=== PATIENT | female | born 1930 | race Caucasian/White ===

== ENCOUNTER 2019-06-29 14:24 | Inpatient (IN) | payer MEDICARE, OTHER ==
[~2019-06-29] VITALS: Ht 160 cm; Wt 53.5 kg
[~2019-06-29 14:24] MED LIST: ASACOL400 MG PO; AZITHROMYCIN250 MG PO; BUMETANIDE1 MG PO; CATAPRES0.2 MG PO; CENTRUM SILVER1 EAC3 PO; ESTRADIOL1 MG PO; GLIPIZIDE XL2.5 MG PO; IBUPROFEN400 MG PO; JANUVIA100 MG PO; KEFLEX500 MG PO; LEVOTHYROXINE100 MC1 PO; METFORMIN HCL500 MG PO; NEXIUM40 MG PO; NORTRIPTYLINE H10 MG PO; PLAVIX75 MG PO
[2019-06-29] MEDS ORDERED: SODIUM CHLORIDE 0.9% 500ML 500 ML IV ONE (17:15)
--- NOTE | 2019-06-29 19:02 | NUR ---
LABIA NOTED TO BE RED AND EXCORIATED, KAELA CARE PROVIDED, NEW ADULT BRIEF PLACED.
[2019-06-29 19:20] LABS: BASOPHILS % 0.3 % (0.0-1.0); EOSINOPHILS # (AUTO) 0.1 (0.0-0.4); EOSINOPHILS % 1.2 % (0.0-6.0); HEMATOCRIT 34.9 % (34.2-44.1); HEMOGLOBIN 11.4 g/dL (12.0-16.0); LYMPHOCYTES # (AUTO) 1.5 (1.0-3.2); MEAN CORPUSCULAR HEMOGLOBIN 28.3 pg (28-32); MEAN CORPUSCULAR HGB CONC 32.7 g/dL (31-35); MEAN CORPUSCULAR VOLUME 86.6 fL (81-99); MONOCYTES # (AUTO) 1.1 (0.2-0.8); MONOCYTES % 10.2 % (4.4-11.3); NEUTROPHILS # (AUTO) 7.8 (2.1-6.9); NEUTROPHILS % 73.6 % (38.7-80.0); PLATELET COUNT 327 x10e3/uL (140-360); RED BLOOD COUNT 4.03 x10e6/uL (3.6-5.1); RED CELL DISTRIBUTION WIDTH 17.3 % (11.7-14.4)
[2019-06-29 19:21] LABS: BILIRUBIN,URINE NEGATIVE (NEGATIVE); CLARITY,URINE SL CLOUDY (CLEAR); COLOR,URINE YELLOW (YELLOW); KETONES,URINE NEGATIVE (NEGATIVE); LEUKOCYTE ESTERASE ,URINE LARGE (NEGATIVE); NITRITE,URINE POSITIVE (NEGATIVE); PROTEIN,URINE DIPSTICK 2+ (NEGATIVE); URINE UROBILINOGEN 0.2 mg/dL (0.2 - 1)
[2019-06-29 19:36] LABS: BACTERIA,URINE MODERATE /HPF; EPITHELIAL CELLS,URINE RARE /LPF; WBC,URINE (MAN) >50 /HPF (0-5)
[2019-06-29 19:42] LABS: ALBUMIN 3.7 g/dL (3.5-5.0); ALBUMIN/GLOBULIN RATIO 0.9 (0.8-2.0); ANION GAP 16.8 mmol/L (8-16); CALCIUM 10.1 mg/dL (8.4-10.2); CREATININE, SERUM 2.49 mg/dL (0.57-1.11); MAGNESIUM 2.5 MG/DL (1.3-2.1); POTASSIUM 4.8 mmol/L (3.5-5.1)
[2019-06-29 19:48] LABS: CREATINE KINASE MB 0.8 ng/mL (0-5.0)
--- NOTE | 2019-06-29 19:50 | Diagnostic Imaging Report ---
EXAMINATION: Head CT without contrast. HISTORY:Altered mental status. COMPARISON:Report of MRI brain from 12/21/2007, prior images are not available for comparison at the time of interpretation. TECHNIQUE: Multidetector axial images were obtained from the foramen magnum to the vertex without contrast. The images were reconstructed using brain and bone algorithms. Thin section brain images were reformatted into coronal and sagittal planes. Dose modulation, iterative reconstruction, and/or weight based adjustment of the mA/kV was utilized to reduce the radiation dose to as low as reasonably achievable. Intravenous contrast: None IMAGE QUALITY: Acceptable. FINDINGS: Skull/scalp: No lytic or blastic. lesions. No surgical changes. Parenchyma: Nonspecific bilateral frontoparietal confluent periventricular, patchy subcortical and deep white matter hypodensity are likely related to small vessel ischemic changes. Focal hypodensity in anterior aspect of right putamen and punctate hypodensity in the posterior aspect of left putamen represents age indeterminate lacunar infarct. No acute hemorrhage, mass or acute major vascular territorial infarct. Arteries: No density suggestive of thrombosis. Atherosclerotic calcification in bilateral carotid siphon. Dural sinuses: No abnormal density suggestive of thrombosis. Ventricles: Mild compensated dilatation due to volume loss. No hydrocephalus. Extra-axial spaces: No abnormal density. Brain volume: Generalized age-related cerebral volume loss. Craniocervical junction: No mass, Chiari malformation, or basilar invagination. Sella: No mass. Paranasal/mastoid sinuses: Imaged portions unremarkable. IMPRESSION: 1. No acute intracranial abnormality, particularly no acute hemorrhage, mass or acute major vascular territorial infarct. 2. 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 3. Moderate to severe supratentorial white matter microvascular ischemic changes. 4. Generalized age-related cerebral volume loss. Signed by: Dr. Emily Genao M.D. on 06/29/2019 7:47 PM
[2019-06-29] MEDS ORDERED: CEFTRIAXONE SOD 1 GM/NS 50 ML 50 ML IV SCH (20:15)
[2019-06-30] VITALS (7 sets, daily range): BP systolic 119–177; BP diastolic 55–86
--- NOTE | 2019-06-30 00:25 | NUR ---
DR. SHORT AT BEDSIDE EXPLAINING RISKS, BENEFITS, AND ALTERNATIVE TREATMENTS FOR CENTRAL LINE PLACEMENT DUE TO POOR VENOUS ACCESS AND NEED FOR IV ABX AT THIS TIME; OBTAINING WITNESS FOR INFORMED CONSENT AT THIS TIME.
--- NOTE | 2019-06-30 00:48 | NUR ---
CENTRAL LINE PLACED BY DR. SHORT AT BEDSIDE USING STERILE TECHNIQUE, SITE IS C/D/I WITH DRESSING INTACT, PT TOLERATING WELL AT THIS TIME, LINE OKAY TO USE PER DR. SHORT.
--- NOTE | 2019-06-30 00:50 | NUR ---
CENTRAL LINE TO RT FEMORAL.
--- NOTE | 2019-06-30 01:45 | NUR ---
received patient, aaox2 to self and place. at bedside provided hx and med list. patient denies pain. r triple lumen femoral central line ns @ 125. purewick placed and diaper placed. diaper dermatitis to jorden area and buttock, small stage 2 to sacrum, skin tear to right lateral buttock, stage 1 to bilat. heels. allevyn pink dressing applied to sacrum and bilat heels, heels protectors applied, alternating pressure pump applied, q2 turns initiated. tele #17 SR. at this time no needs voiced, bed locked and in lowest position, call light within easy reach. bed alarm on. will continue to monitor patient.
[2019-06-30] MEDS ORDERED: PANTOPRAZOLE SO40 MG PO (02:02)
[2019-06-30] MEDS ORDERED: RISPERIDONE1 MG PO (02:02)
[2019-06-30] MEDS ORDERED: METFORMIN HCL500 MG PO (02:02)
[2019-06-30] MEDS ORDERED: MEGESTROL ACETA40 MG PO (02:02)
[2019-06-30] MEDS ORDERED: TEMAZEPAM15 MG PO (02:02)
[2019-06-30] MEDS ORDERED: BUSPIRONE HCL5 MG PO (02:02)
[2019-06-30] MEDS: SODIUM CHLORIDE 0.9% 1000ML 1,000 ML IV SCH ×3 (03:13→16:37)
[2019-06-30] MEDS ORDERED: CLONIDINE HCL 0.1 MG TAB PO PRN (04:00)
[2019-06-30] MEDS ORDERED: LABETALOL HCL 5 MG/ML 20ML VIAL IV PRN (04:00)
--- NOTE | 2019-06-30 04:05 | NUR ---
spoke with dr. brooks regarding elevated bp, new telephone orders entered and implemented.
[2019-06-30 04:31] LABS: CREATINE KINASE MB 0.8 ng/mL (0-5.0)
--- NOTE | 2019-06-30 07:03 | NUR ---
RECEIVED BEDSIDE SHIFT REPORT FROM PROJECT GEOPHYSICIST RN, PT RESTING IN BED, IN STABLE CONDITION. CALL LIGHT WITHIN REACH. WILL CONTINUE TO MONITOR.
--- NOTE | 2019-06-30 07:05 | NUR ---
BEDSIDE SHIFT REPORT RECEIVED PT IN STABLE CONDITION, IVF INFUSING TO R FEMORAL TRIPLE LUMEN, NO DISTRESS NOTED, NO OTHER CO VOICED CALL LIGHT IN REACH WILL CONTINUE TO MONITOR
[2019-06-30 10:50] LABS: CREATINE KINASE MB 0.9 ng/mL (0-5.0)
[2019-06-30] MEDS: CEFTRIAXONE SOD 1 GM/NS 50 ML 50 ML IV SCH (12:55)
--- NOTE | 2019-06-30 14:05 | Diagnostic Imaging Report ---
A single frontal view of the chest. HISTORY: CHF COMPARISON: None available. DISCUSSION: Portable technique, limits sensitivity of the exam. Left anterior oblique rotation. Overlying monitoring leads. Tubes/Lines: None Lungs and pleura: Low lung volumes result in bibasilar vascular crowding, accentuation of the pulmonary interstitial markings, central pulmonary vasculature, and the cardiac silhouette. Allowing for these limitations, the findings are as follows: Mild left basilar volume loss. Improved aeration of the right lung base. Heart and mediastinum: Stable mild rightward translation of the upper mediastinum, which may be accentuated by the left convex curvature of the thoracic spine. Stable appearing ectasia versus tortuosity of the thoracic aorta with prominent calcifications. Bones and soft tissues: Appear unremarkable, given this limited exam. IMPRESSION: Mild left basilar volume loss, compatible with atelectasis. No consolidative pneumonia or pulmonary alveolar edema. Signed by: Dr. Kevin Lacy D.O., M.M.M. on 06/30/2019 2:02 PM
--- NOTE | 2019-06-30 14:42 | History and Physical ---
CHIEF COMPLAINT: Altered mentation. HISTORY OF PRESENT ILLNESS: This is an 89-year-old white woman, who presents to [facility] with a 2-week history of worsening confusion. According to adult daughter, the patient has been less interactive over the last two weeks. In fact, over the last week, she has eaten only minimally. The patient is usually in an anxious agitated state, but over the last week, she has become less interactive and more quiet, which is unusual for her according to adult daughter. In the emergency room, the patient was found to have white blood cell count of 10,500 with 73% segments. Also, in the emergency room, the patient's BUN and creatinine was 40 and 2.49 respectively. The patient underwent CT of the head in the emergency room that did not reveal any acute intracranial abnormality, but did reveal moderate to severe white matter microvascular ischemic changes. The patient had urinalysis performed in the emergency room revealed cloudy yellow urine with 1+ protein, positive nitrites, large leukocyte esterase, 11 to 20 red blood cells per high-power field and greater than 50 white blood cells per high-power field. Urinalysis also revealed moderate bacteria. The patient was admitted for further evaluation and treatment. REVIEW OF SYSTEMS: GENERAL: The patient has lost at least 10 to 15 pounds over the last year. Her dementia is only worsening according to adult daughter. She had no fever, chills lately. HEENT: No headaches. No vision changes. CARDIOVASCULAR: No visible shortness of breath or chest pain according to adult daughter. GI: No nausea, vomiting, diarrhea, or constipation. : She suffers from recurrent urinary tract infections. NEUROMUSCULAR: She is completely bed bound. Does not ambulate according to adult daughter. ALLERGIES: ORAL PAIN MEDICATIONS. FAMILY HISTORY: Noncontributory. SOCIAL HISTORY: This woman is , lives with her . No history of tobacco or alcohol use. She has adult daughter who is very much involved in her health care needs. PAST MEDICAL HISTORY: 1. 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 2. Hypertensive heart disease. 3. Stage 3 chronic kidney disease. 4. Recurrent urinary tract infection. 5. Type 2 diabetes mellitus. 6. GERD. 7. Dementia with behavior disturbances. 8. Hypothyroidism. SURGICAL HISTORY: 1. Hysterectomy. 2. Multiple lumbar spine surgeries. 3. Cervical spine surgery. 4. Right total knee replacement. CURRENT MEDICATIONS: As follows: 1. Bumex 1 mg daily. 2. BuSpar 10 mg b.i.d. 3. Clonidine 0.2 mg once daily for elevated blood pressure. 4. Clopidogrel 75 mg daily. 5. Nexium 40 mg daily. 6. Estradiol 1 mg daily. 7. Glipizide 2.5 mg daily. 8. Ibuprofen 400 mg daily. 9. Levothyroxine 100 mcg daily. 10. Megace 40 mg daily. 11. Asacol 400 mg t.i.d. 12. Metformin 500 mg daily. 13. Nortriptyline 10 mg daily. 14. Pantoprazole 40 mg daily. 15. Risperdal 1 mg b.i.d. 16. Temazepam 15 mg q.h.s. for insomnia. 17. Multivitamins daily. PHYSICAL EXAMINATION: GENERAL: She is awake, looks alert. She is not oriented to self, time, place. She has obvious dementia. Her adult daughter is at bedside who provides history. VITAL SIGNS: Height 5 feet 3 inches, weight 118 pounds, BMI 20, blood pressure 178/80, pulse is 100, respiratory rate 18, oxygen saturation 96%, temp 98.7. INTEGUMENT: Skin is warm and dry. No pallor, jaundice, diaphoresis. HEENT: Anterior sclerae. Moist mucous membranes. NECK: Supple. CARDIOVASCULAR: Tachycardic rate, regular. The patient had S3 gallop. LUNGS: No rales, rhonchi, or wheezes. ABDOMEN: Benign. EXTREMITIES: No edema or deformities. NEUROLOGIC: Intact. IMPRESSION: 1. Sepsis secondary to urinary tract infection. 2. Acute on chronic renal failure. 3. 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 4. Acute delirium secondary to metabolic encephalopathy from sepsis. 5. Physical debility. 6. Type 2 diabetes mellitus. 7. Chronic diastolic congestive heart failure. PLAN: 1. We will address code status with the patient's who is the medical power of attorney general. 2. We will likely discontinue telemetry. 3. Intravenous antibiotics. 4. Follow renal function. 5. Intravenous fluids. 6. Order chest x-ray. 7. We will start metformin and ibuprofen as well as Bumex since the patient has acute renal failure. 8. We will stop glipizide since oral sulfonylureas can cause severe hypoglycemia in an elderly. 9. Check TSH level since she has history of hypothyroidism. I spent 50 minutes in the care of the patient. MD DENNIS Anthony/TENNILLE /[id number] MTDJuni
--- NOTE | 2019-06-30 15:29 | NUR ---
Nutrition Intervention Note RD Recommendation(s) for Physician: Continue Diet as ordered Plan of Care: RD following, monitoring for tolerance and adequacy Nutrition reason for involvement: Nutrition Risk Trigger - MST RD Assessment Initial encounter with patient and daughter. Diet Hx: pt has no known food allergies. Pt was confused and daughter provided nutrition Hx. Family does not want nutrition support at this time, but may consider a PEG for senior care nutrition needs. Daughter states that pt has been living off of Boost for several months, but she has been refusing to eat over the past week. Altered mental status due to UTI and Dementia. Involuntary wt loss, loss of functional mobility, loss of lean body mass, prominent acromion process, ribs scapula, clavicle, temporal wasting. Pt has missing and broken teeth with some biting/chewing difficulty, but can manage with regular consistency food. Will provide Chocolate Ensure Enlive TID with meals. Principal Problems/Diagnoses: UTI, renal failure PMH:Dementia, GERD, Hypothyroid, CKD stage 3, GI: normal BM Skin: intact Labs: (06/30/2019) glucose 189 Meds: (06/30/19)1. Bumex 1 mg daily. Glipizide, Levothyroxine, Megace, Metformin, Multivitamins daily. Ht:63 in. Wt:118lbs BMI:20.9kg/M2 IBW:118lbs Malnutrition Evaluation (06/30/2019) The patient meets criteria for unspecified SEVERE protein-calorie malnutrition. Energy intake: <50% of estimated energy requirements for >1 month Weight loss: >7.5% in 3 months (Chronic) Fat loss: Severe Muscle loss: Severe Supporting Evidence: Fluid accumulation: none Functional Status: measurably reduced Nutrition Prescription (Diet Order): Cardiac diet Estimated Nutritional Needs: 1340 - 1609calories/day ( 25-30kcal/kg/BW) 53-80g protein/day ( 1-1.5g pro/kg/BW) Diet Adequacy: Not meeting calorie needs, Not meeting protein needs) Diet Education Needs Assessment: Diet education not indicated. Nutrition Care Level: Moderate Nutrition Diagnosis: Malnutrition related to dementia as evidenced by loss of lean body mass Goal: Patient will meet 75-100% of estimated needs by follow up Progress: Not Progressing Interventions: modified diet, Commercial beverage Monitoring/Evaluation: Total energy intake, Total protein intake, Liquid supplement, Weight change Signed: Cooper Fletcher RD, DONNA, CNSC
[2019-06-30] MEDS ORDERED: DEXTROSE 50% SYRINGE 50 ML IV PRN (16:15)
[2019-06-30] MEDS: INSULIN REGULAR, HUMAN 100 UNIT/1 ML 3ML VIAL SQ SCH ×2 (17:28→21:40)
[2019-06-30] MEDS: RISPERIDONE 1 MG TAB PO SCH (17:43)
--- NOTE | 2019-06-30 19:11 | NUR ---
WALKING ROUNDS PERFORMED, RECEIVED PT LAYING SEMI FOWLERS IN BED, RESTING, 16 RR/MIN. RR EVEN AND NON-LABORED, ON ROOM AIR. NO S/SX OF DISTRESS NOTED. LEFT PT LAYING SEMI FOWLERS IN BED, BED IN LOW LOCKED POSITION, SIDE RAILS UPX2, CALL LIGHT AND PHONE WITHIN REACH.
[2019-06-30 20:19] LABS: CREATINE KINASE MB 0.9 ng/mL (0-5.0)
[2019-06-30] MEDS: TEMAZEPAM 15 MG CAP PO SCH (21:40)
[2019-07-01] VITALS (8 sets, daily range): BP systolic 147–196; BP diastolic 69–93
[2019-07-01] MEDS: CEFTRIAXONE SOD 1 GM/NS 50 ML 50 ML IV SCH ×3 (00:40→23:41)
[2019-07-01] MEDS: PANTOPRAZOLE SOD 40 MG TABEC PO SCH ×2 (05:06→22:47)
[2019-07-01 05:50] LABS: BASOPHILS % 0.5 % (0.0-1.0); EOSINOPHILS # (AUTO) 0.2 (0.0-0.4); EOSINOPHILS % 2.5 % (0.0-6.0); HEMATOCRIT 27.6 % (34.2-44.1); HEMOGLOBIN 8.6 g/dL (12.0-16.0); LYMPHOCYTES # (AUTO) 1.1 (1.0-3.2); LYMPHOCYTES % 14.3 % (18.0-39.1); MEAN CORPUSCULAR HEMOGLOBIN 27.8 pg (28-32); MEAN CORPUSCULAR HGB CONC 31.2 g/dL (31-35); MEAN CORPUSCULAR VOLUME 89.3 fL (81-99); MONOCYTES # (AUTO) 0.6 (0.2-0.8); MONOCYTES % 7.9 % (4.4-11.3); NEUTROPHILS # (AUTO) 5.8 (2.1-6.9); NEUTROPHILS % 74.3 % (38.7-80.0); PLATELET COUNT 261 x10e3/uL (140-360); RED BLOOD COUNT 3.09 x10e6/uL (3.6-5.1); RED CELL DISTRIBUTION WIDTH 17.7 % (11.7-14.4)
[2019-07-01] MEDS: SODIUM CHLORIDE 0.9% 1000ML 1,000 ML IV SCH ×2 (05:50→21:30)
[2019-07-01 06:04] LABS: CALCIUM 8.7 mg/dL (8.4-10.2); CREATININE, SERUM 1.83 mg/dL (0.57-1.11)
--- NOTE | 2019-07-01 06:19 | NUR ---
PUREWICK AND WALL SUCTION CANISTER CHANGED.
--- NOTE | 2019-07-01 06:59 | NUR ---
received shift report from slot shift manager nurse, pt resting in bed, respirations even and nonlabored. no s/s distress noted. call light within reach, will continue to monitor.
[2019-07-01] MEDS: INSULIN REGULAR, HUMAN 100 UNIT/1 ML 3ML VIAL SQ SCH ×4 (07:30→20:52)
[2019-07-01] MEDS: RISPERIDONE 1 MG TAB PO SCH ×2 (08:53→17:38)
[2019-07-01] MEDS: LEVOTHYROXINE SODIUM 100 MCG/VIAL IM SCH (08:53)
[2019-07-01] MEDS: MEGESTROL ACETATE 40 MG TAB PO SCH (08:53)
--- NOTE | 2019-07-01 11:07 | NUR ---
pt was turned to right side in bed, dressings changed to sacrum and bilateral feet. will continue to monitor.
--- NOTE | 2019-07-01 12:19 | NUR ---
per daughter, pt's gave verbal consent for pt to receive blood transfusion, if needed.
[2019-07-01] MEDS: PANTOPRAZOLE SODIUM 40 MG SUSPDR.PKT PO SCH (17:38)
--- NOTE | 2019-07-01 19:25 | NUR ---
report given to assembler 1st shift rn, pt left in stable condition, call light in reach will continue to monitor
[2019-07-01] MEDS: TEMAZEPAM 15 MG CAP PO SCH (20:52)
--- NOTE | 2019-07-01 21:00 | NUR ---
DIAPER CHANGED, CLEANSED KAELA-AREA AND APPLIED NEW PUREWICK CATHETER. CENTRAL LINE CATHETER DRESSING SATURATED WITH URINE. REMOVED DRESSING AND PERFORMED STERILE DRESSING CHANGE TO (R) FEMORAL CENTRAL LINE.
[2019-07-02] VITALS (8 sets, daily range): BP systolic 134–179; BP diastolic 66–90
[2019-07-02 05:16] LABS: BASOPHILS % 0.4 % (0.0-1.0); EOSINOPHILS # (AUTO) 0.3 (0.0-0.4); EOSINOPHILS % 3.3 % (0.0-6.0); HEMATOCRIT 25.9 % (34.2-44.1); HEMOGLOBIN 8.2 g/dL (12.0-16.0); LYMPHOCYTES # (AUTO) 1.4 (1.0-3.2); LYMPHOCYTES % 16.2 % (18.0-39.1); MEAN CORPUSCULAR HGB CONC 31.7 g/dL (31-35); MEAN CORPUSCULAR VOLUME 88.4 fL (81-99); MONOCYTES # (AUTO) 0.7 (0.2-0.8); MONOCYTES % 8.2 % (4.4-11.3); NEUTROPHILS % 71.3 % (38.7-80.0); PLATELET COUNT 230 x10e3/uL (140-360); RED BLOOD COUNT 2.93 x10e6/uL (3.6-5.1); RED CELL DISTRIBUTION WIDTH 17.7 % (11.7-14.4)
[2019-07-02 05:38] LABS: ALBUMIN 2.6 g/dL (3.5-5.0); ALBUMIN/GLOBULIN RATIO 0.9 (0.8-2.0); ANION GAP 13.8 mmol/L (8-16); CALCIUM 8.7 mg/dL (8.4-10.2); CREATININE, SERUM 1.54 mg/dL (0.57-1.11); POTASSIUM 3.8 mmol/L (3.5-5.1)
--- NOTE | 2019-07-02 07:05 | NUR ---
RECEIVED PATIENT RESTING IN BED NO SIGNS OF DISTRESS. BED LOW, WHEELS LOCKED, SIDE RAILS X2. CALL LIGHT IN REACH WILL CONTINUE TO MONITOR PATIENT.
[2019-07-02] MEDS: INSULIN REGULAR, HUMAN 100 UNIT/1 ML 3ML VIAL SQ SCH ×4 (07:30→21:05)
[2019-07-02] MEDS: RISPERIDONE 1 MG TAB PO SCH ×2 (08:07→16:49)
[2019-07-02] MEDS: PANTOPRAZOLE SODIUM 40 MG SUSPDR.PKT PO SCH ×2 (08:07→16:49)
[2019-07-02] MEDS: MEGESTROL ACETATE 40 MG TAB PO SCH (08:07)
--- NOTE | 2019-07-02 08:34 | NUR ---
PATIENT A/O X2, EVEN RESPIRATIONS ON RA. LUNG SOUNDS CLEAR TO AUSCULTATION. TELEMETRY #17 SR. RIGHT FEMORAL CL WITH NS @ 75 CC/HR. PUREWICK IN PLACE. RASH TO GROIN/BUTTOCK, STAGE 2 SACRUM, STAGE 1 DIANA. HEELS. HEEL PROTECTOR IN PLACE. WOUND CARE CONSULT. NO PAIN AT THIS TIME, SITTER AT BEDSIDE. CALL LIGHT IN REACH WILL CONTINUE TO MONITOR PATIENT.
[2019-07-02] MEDS: LEVOTHYROXINE SODIUM 100 MCG/VIAL IM SCH (09:00)
[2019-07-02] MEDS: LEVOTHYROXINE SODIUM 100 MCG TAB PO SCH (11:24)
[2019-07-02] MEDS: SODIUM CHLORIDE 0.9% 1000ML 1,000 ML IV SCH (12:19)
[2019-07-02] MEDS: CEFTRIAXONE SOD 1 GM/NS 50 ML 50 ML IV SCH (12:19)
[2019-07-02] MEDS: TEMAZEPAM 15 MG CAP PO SCH (21:04)
[2019-07-03] VITALS (7 sets, daily range): BP systolic 138–187; BP diastolic 63–91
[2019-07-03] MEDS: CEFTRIAXONE SOD 1 GM/NS 50 ML 50 ML IV SCH ×3 (00:46→23:21)
[2019-07-03] MEDS: PANTOPRAZOLE SOD 40 MG TABEC PO SCH (05:39)
[2019-07-03 06:23] LABS: BASOPHILS % 0.3 % (0.0-1.0); EOSINOPHILS # (AUTO) 0.4 (0.0-0.4); EOSINOPHILS % 4.2 % (0.0-6.0); HEMATOCRIT 24.7 % (34.2-44.1); LYMPHOCYTES # (AUTO) 1.4 (1.0-3.2); LYMPHOCYTES % 16.4 % (18.0-39.1); MEAN CORPUSCULAR HEMOGLOBIN 28.6 pg (28-32); MEAN CORPUSCULAR HGB CONC 32.4 g/dL (31-35); MEAN CORPUSCULAR VOLUME 88.2 fL (81-99); MONOCYTES # (AUTO) 0.8 (0.2-0.8); MONOCYTES % 9.3 % (4.4-11.3); PLATELET COUNT 228 x10e3/uL (140-360)
[2019-07-03 06:33] LABS: CALCIUM 8.4 mg/dL (8.4-10.2); CREATININE, SERUM 1.4 mg/dL (0.57-1.11)
[2019-07-03] MEDS: LEVOTHYROXINE SODIUM 100 MCG TAB PO SCH (07:14)
[2019-07-03] MEDS: INSULIN REGULAR, HUMAN 100 UNIT/1 ML 3ML VIAL SQ SCH ×4 (07:30→21:45)
--- NOTE | 2019-07-03 08:22 | NUR ---
patient resting in bed, alert with no distress, caregiver at bed side
[2019-07-03] MEDS: PANTOPRAZOLE SODIUM 40 MG SUSPDR.PKT PO SCH ×2 (08:26→17:25)
[2019-07-03] MEDS: RISPERIDONE 1 MG TAB PO SCH ×2 (08:27→17:25)
[2019-07-03] MEDS: MEGESTROL ACETATE 40 MG TAB PO SCH (08:27)
--- NOTE | 2019-07-03 10:57 | Diagnostic Imaging Report ---
EXAM: CHEST SINGLE (PORTABLE) DATE: 07/03/2019 10:08 AM INDICATION: Left lower lobe infiltrate COMPARISON: Chest From 06/30/2019 FINDINGS: The trachea is midline. There is stable mild elevation the right hemidiaphragm. The left basilar opacities are not appreciated on today's examination. There is no evidence for focal consolidation, pneumothorax, or significant pleural effusion. The cardiac mediastinal silhouette is stable in appearance. Vascular calcifications are noted within the thoracic aorta. No acute osseous abnormalities identified. IMPRESSION: No acute cardiopulmonary process identified. Signed by: Dr. Jian Grissom MD on 07/03/2019 10:54 AM
--- NOTE | 2019-07-03 14:42 | NUR ---
89 YO Female presents with Rt heel DTI with surrounding redness upon assessment other healed areas noted to sacrum . appears to be yeast related rash as evidenced by denuded areas to jorden area and buttocks and Rt breast fold. blanchable redness noted to Left heel Recommendations Continue alternating relief mattress Continue turn every 2 hrs and PRN Apply bilateral Prevalon boots to LE Daily Venelex oint to bilateral heels and cover with allevyn foam dressing Venelex with Nyastatin powder BID to Rt. breast fold , buttocks and jorden area Addendum: 07/03/19 at 1459 by Kishan Ambrose RN Amended: Links added.
[2019-07-03] MEDS: NYSTATIN 15 GM POWDER UD BTL TOP SCH (17:25)
[2019-07-03] MEDS: TEMAZEPAM 15 MG CAP PO SCH (21:17)
[2019-07-03] MEDS: BALSAM PERU/CASTOR OIL 5 GM OINT...G. TP SCH (21:18)
[2019-07-04] VITALS: BP 159/74
[2019-07-04 04:00] VITALS: BP 185/88
[2019-07-04 05:59] LABS: BASOPHILS % 0.3 % (0.0-1.0); EOSINOPHILS # (AUTO) 0.5 (0.0-0.4); EOSINOPHILS % 5.6 % (0.0-6.0); HEMATOCRIT 27.3 % (34.2-44.1); HEMOGLOBIN 8.6 g/dL (12.0-16.0); LYMPHOCYTES # (AUTO) 1.5 (1.0-3.2); LYMPHOCYTES % 17.2 % (18.0-39.1); MEAN CORPUSCULAR HEMOGLOBIN 28.2 pg (28-32); MEAN CORPUSCULAR HGB CONC 31.5 g/dL (31-35); MEAN CORPUSCULAR VOLUME 89.5 fL (81-99); MONOCYTES # (AUTO) 0.8 (0.2-0.8); MONOCYTES % 9.1 % (4.4-11.3); NEUTROPHILS % 67.2 % (38.7-80.0); PLATELET COUNT 229 x10e3/uL (140-360); RED BLOOD COUNT 3.05 x10e6/uL (3.6-5.1); RED CELL DISTRIBUTION WIDTH 18.3 % (11.7-14.4)
[2019-07-04] MEDS: LEVOTHYROXINE SODIUM 100 MCG TAB PO SCH (06:07)
[2019-07-04 06:25] LABS: ANION GAP 12.1 mmol/L (8-16); CALCIUM 8.9 mg/dL (8.4-10.2); CREATININE, SERUM 1.45 mg/dL (0.57-1.11); POTASSIUM 4.1 mmol/L (3.5-5.1)
[2019-07-04] MEDS: INSULIN REGULAR, HUMAN 100 UNIT/1 ML 3ML VIAL SQ SCH ×3 (07:30→16:30)
[2019-07-04 08:00] VITALS: BP 178/84
[2019-07-04] MEDS: MEGESTROL ACETATE 40 MG TAB PO SCH (08:14)
[2019-07-04] MEDS: RISPERIDONE 1 MG TAB PO SCH ×2 (08:14→17:00)
[2019-07-04] MEDS: NYSTATIN 15 GM POWDER UD BTL TOP SCH ×2 (08:14→19:11)
[2019-07-04] MEDS: PANTOPRAZOLE SODIUM 40 MG SUSPDR.PKT PO SCH ×2 (08:14→16:30)
--- NOTE | 2019-07-04 09:21 | NUR ---
CALLED AND SPOKE WITH GAIL [phone] ABOUT THE DIFFERENT CHOICES FOR HOSPICE, HE CHOSE [facility] VIA PHONE AND CONSENTS TO HAVE THEM CONTACT HIM TO TELL ABOUT SERVICES. CONTACTED REP FOR REFERRAL, SHE WILL MEET WITH FAMILY.
[2019-07-04] MEDS: BALSAM PERU/CASTOR OIL 5 GM OINT...G. TP SCH (09:57)
[2019-07-04] MEDS: SENNA-S TABLET PO SCH ×2 (09:57→19:11)
[2019-07-04 12:00] VITALS: BP 180/80
[2019-07-04] MEDS: CEFTRIAXONE SOD 1 GM/NS 50 ML 50 ML IV SCH (12:24)
[2019-07-04 16:30] VITALS: BP 162/76
--- NOTE | 2019-07-04 18:30 | NUR ---
new order recvd from Dr Arrieta to take central line out, updated med list from Dr ARRIETA given to family, central line is out pressure dressing put, intact, patient not in any distress, patient ok to go home under hospice . daughter at bed side
--- NOTE | 2019-07-04 18:50 | NUR ---
Received report from previous nurse. Call light within reach. Patient in bed. Daughter at bedside. Waiting for ambulance to take her home.
--- NOTE | 2019-07-04 20:35 | NUR ---
Patient left home via EMS on a stretcher. Daughter accompanied patient. IV line was taken out during day shift. Patient in no distress. Daughter collected all belongings. Day shift nurse gave the patient and daughter discharge papers and instructions.
[2019-07-05] MEDS ORDERED: KEFLEX250 MG PO (10:54)
--- NOTE | 2019-07-05 14:54 | NUR ---
Dictated DC summary: [id number]
--- NOTE | 2019-07-05 15:31 | Discharge Summary ---
ADMIT DIAGNOSES: 1. Sepsis secondary to urinary tract infection. 2. Fswcf-wy-tfrmpdb renal failure. 3. Sqgyqtnk-nc-adgzlh vascular dementia. 4. Acute delirium secondary to metabolic encephalopathy from sepsis. 5. Physical debility. 6. Type 2 diabetes mellitus. 7. Chronic diastolic congestive heart failure. DISCHARGE DIAGNOSES: 1. Sepsis secondary to Streptococcus viridans urinary tract infection, resolving. 2. Uqcmf-ac-ajflzsa renal failure, resolved. 3. Stage 3 chronic kidney disease. 4. Sorktxtg-sb-wxvbcq vascular dementia. 5. Acute delirium secondary to metabolic encephalopathy from sepsis, resolved. 6. Physical debility. 7. Type 2 diabetes mellitus. 8. Chronic diastolic congestive heart failure. 9. Anemia secondary to chronic disease/chronic kidney disease. HOSPITAL COURSE: This is an 89-year-old white woman, who was initially admitted to [facility] with a diagnosis of sepsis secondary to urinary tract infection as well as hkbzq-wo-swzuxzg renal failure. She also has underlying history of wjryplux-xg-cyzotc vascular dementia. Moreover, she was diagnosed with acute delirium secondary to metabolic encephalopathy from the sepsis on admission. During this hospitalization, the patient's acute delirium from the metabolic encephalopathy resolved once her sepsis was treated. The patient's sepsis did resolve secondary to her Streptococcus viridans urinary tract infection. Urine cultures revealed the presence of Streptococcus viridans bacterial species. The patient improved dramatically in regard to urinary tract infection with intravenous ceftriaxone, which she tolerated quite well. The patient's BUN and creatinine on admission were 40 and 2.49 respectively. On the day of discharge, the patient's BUN and creatinine were 22 and 1.45 respectively with an estimated GFR of 34 mL/minute. The patient also was taken off all NSAIDs and anti-platelet therapy because of her worsening anemia. During this hospitalization, the patient's made the patient a up-sgw-rgdvzlhhbeg code status. The patient's family, who included the as well as adult daughter decided to proceed with palliative treatment in the form of hospice care. Her hospitalization was unremarkable. CONDITION ON DISCHARGE: Stable. DISCHARGE MEDICATIONS: 1. Keflex 250 mg t.i.d. for 5 days. 2. Levothyroxine 100 mcg daily. 3. Megace 40 mg daily. 4. Nexium 40 mg daily. 5. Risperdal 1 mg b.i.d. 6. Temazepam 15 mg at bedtime p.r.n. insomnia. The following medications were discontinued: 1. Bumex. 2. BuSpar. 3. Clonidine. 4. Clopidogrel. 5. Estradiol. 6. Glipizide. 7. Ibuprofen. 8. Mesalamine. 9. Metformin. FOLLOWUP INSTRUCTIONS: The patient will be discharged home under home hospice care as previously stated. MD DENNIS Anthony/TENNILLE /[id number]
== END 2019-07-04 20:32 | disposition hospice, home (50) | DRG 871 ==
LOC: ER 14:24 → ERHOLD 06-30 00:12 → MED/SURG 06-30 01:32
PROVIDERS: ADMIT Internal Medicine; ATTEND Internal Medicine
DX: A40.8 Other streptococcal sepsis (principal); G93.41 Metabolic encephalopathy; E43 Unspecified severe protein-calorie malnutrition; N39.0 Urinary tract infection, site not specified; N17.9 Acute kidney failure, unspecified; I50.32 Chronic diastolic (congestive) heart failure; I13.0 Hypertensive heart and chronic kidney disease with heart failure and stage 1 through stage 4 chronic kidney disease, or unspecified chronic kidney disease; F01.50 Vascular dementia, unspecified severity, without behavioral disturbance, psychotic disturbance, mood disturbance, and anxiety; Z66 Do not resuscitate; E11.22 Type 2 diabetes mellitus with diabetic chronic kidney disease; N18.3 Chronic kidney disease, stage 3 (moderate); K21.9 Gastro-esophageal reflux disease without esophagitis; E03.9 Hypothyroidism, unspecified; R53.81 Other malaise; Z88.8 Allergy status to other drugs, medicaments and biological substances; D63.1 Anemia in chronic kidney disease; S90.31XA Contusion of right foot, initial encounter; Z68.20 Body mass index [BMI] 20.0-20.9, adult
CPT/HCPCS: 36415; 70450; 71045; 80048; 80053; 81001; 82550; 82553; 82948; 83605; 83735; 83880; 84443; 84484; 85025; 87086; 96361; 99285; J0696; J1817; J7030; J7040